=== PATIENT | female | born 1980 | race Caucasian/White ===

== ENCOUNTER → 2018-05-26 | Day surgery (SDC) | payer OTHER ==
[~2018-05-26] MED LIST: ETHI1TAB5 PO; IV RINGERS,LACTATED 1000ML 1,000 ML IV SCH; LIDOCAINE 1% PF 2 ML VIAL. ID PRN; LIDOCAINE 2% PF 5 ML VIAL. ONE; MIDAZOLAM HCL/PF 2 MG/2 ML VIAL. IV PRN; PANT20TA2 PO; PROPOFOL 20 ML IV ONE; PROPOFOL 40 ML IV ONE; RANI-376 PO; fentaNYL PF VIAL 100 MCG/2 ML VIAL IV PRN
[2018-05-26 11:08] LABS: U PREG PATIENT NEGATIVE (NEG)
[2018-05-26 12:17] VITALS: BP 110/71
--- NOTE | 2018-05-27 15:06 | PATHOLOGY ---
[facility] Accession Number: [id number] . 01 Material submitted: . PART A: esophagus - BIOPSY GE JUNCTION PART B: esophagus - BIOPSY DISTAL ESOPHAGUS. Modifiers: distal PART C: esophagus - BIOPSY PROXIMAL ESOPHAGUS. Modifiers: proximal . 01 Clinical history: . Pre-OP DX: Dysphagia Post-OP DX: Grade A esophagitis . 02 Diagnosis: A. Gastroesophageal junction biopsy, irregular Z-line: - Segment of gastric mucosa showing congestion and mild chronic inflammation. . B. Esophageal biopsy, distal esophagus: - Segments of mildly hyperplastic squamous esophageal mucosa. . C. Esophageal biopsy, proximal esophagus: - Segments of mildly hyperplastic squamous esophageal mucosa. . (JPM:elmer; 05/27/2018) MBR/05/27/2018 . 02 Comment: Sections of the gastroesophageal junction biopsy reveal a segment of gastric mucosa showing congestion and mild chronic inflammation. There is no squamous esophageal mucosa identified. There is no evidence of Marr's change, dysplasia, or malignancy. . Sections of the distal and proximal esophageal biopsies appear similar and reveal segments of tangentially oriented, mildly hyperplastic squamous esophageal mucosa. There is no evidence of an eosinophilic esophagitis. There is no evidence of Marr's change, dysplasia, or malignancy. . (JPM:elmer; 05/27/2018) . 02 Electronically signed: . Mohamud Guardado MD, Pathologist NPI- [id number] . 01 Gross description: . A. Received in formalin labeled "DipyonatanrmoMikea, BX GE junction irregular Z line, rule out Marr's," is a single segment of jeffrey soft tissue measuring 0.5 cm in maximum dimension. The specimen is entirely submitted in cassette A1. . B. Received in formalin labeled "Dipalermo, Viviane, BX distal esophagus," is a single segment of jeffrey soft tissue measuring 0.4 cm in maximum dimension. The specimen is entirely submitted in cassette B1. . C. Received in formalin labeled "Viviane Hernandez, BX proximal esophagus, rule out eosinophilic esophagitis," are 2 segments of jeffrey soft tissue measuring 0.7 x 0.2 0.1 cm in aggregate dimensions and ranging from 0.3 to 0.4 cm in maximum dimension. The specimen is submitted entirely in cassette C1. (TSD; 05/26/2018) TOB/TOB . 02 Pathologist provided ICD-10: K20.8, R13.10 . 02 CPT . 314313, 439302, 787210 Specimen Comment: A courtesy copy of this report has been sent to Specimen Comment: [phone], . Specimen Comment: Report sent to / DR PENA Performed at: 01 [facility] [address], [place], [place] [id number] MD Connor Villegas MD Phone: [phone] Performed at: 02 [facility] [address] [place], [place] [id number] MD Mohamud Guardado MD Phone: [phone]
== END | disposition home or self-care (01) ==
LOC: SURG 10:43
PROVIDERS: ATTEND Internal Medicine
DX: K21.0 Gastro-esophageal reflux disease with esophagitis (principal); F41.9 Anxiety disorder, unspecified; K08.409 Partial loss of teeth, unspecified cause, unspecified class; Z72.89 Other problems related to lifestyle; Z79.899 Other long term (current) drug therapy; Z98.890 Other specified postprocedural states
CPT/HCPCS: 43239; 81025; 88305; J2001; J2704